=== PATIENT | male | born 1945 | race Caucasian/White ===

== ENCOUNTER 2018-11-06 18:04 | Observation (INO) | payer OTHER ==
[~2018-11-06] VITALS: Ht 160 cm; Wt 61.7 kg
[2018-11-06] MEDS ORDERED: SOD CHLORIDE 0.9% 500 ML IV STA (19:59)
--- NOTE | 2018-11-06 20:23 | ERD ---
ER Documentation Chief Complaint Chief Complaint CP X'S 2 WEEKS, BLOOD IN STOOL X'S 2 DAYS HPI 73-year-old male with a history of diabetes, SVT sent from his primary care doctor's office for constipation. Patient states that he has had constipation problems for the past 1 year but has recently worsened in the past 1 week. 2 days ago, he did see blood in his stools, which worried his primary care doctor who sent him to the ER. Patient has a colonoscopy scheduled in March and states that he cannot wait that long. He has a history of some type of rectal surgery due to a hole in his colon per his son. The details of the surgery are unclear. However he denies having any cancer. That was done 15 years ago when he has not had colonoscopy since then. Patient endorses some mild lower abdominal pain but denies any nausea, vomiting, fever, chills, or severe rectal pain. He denies any dysuria, change in urination, or hematuria. Of note, chief complaint for the patient states that he had chest pain. However I think there was some problem with communication given the patient is only Telugu speaking. He is denying any chest pain to me. ROS All systems reviewed and are negative except as per history of present illness. Medications Home Meds No Active Prescriptions or Reported Meds Allergies Allergies: Coded Allergies: No Known Allergy (Unverified , 11/07/18) PMhx/Soc History of Surgery: Yes (appendectomy, colon sx) Hx Cardiac Disorders: Yes (SVT) Hx Miscellaneous Medical Probl: Yes (Diabetes) Hx Alcohol Use: No Hx Substance Use: No Hx Tobacco Use: No Smoking Status: Never smoker FmHx Family History: No diabetes Physical Exam Vitals Physical Exam Const: No acute distress Head: Atraumatic Eyes: Normal Conjunctiva ENT: Normal External Ears, Nose and Mouth. Neck: Full range of motion. No meningismus. Resp: Clear to auscultation bilaterally Cardio: Regular rate and rhythm, no murmurs Abd: Soft, non tender, non distended. Normal bowel sounds Skin: No petechiae or rashes Back: No midline or flank tenderness Ext: No cyanosis, or edema Neur: Awake and alert Psych: Normal Mood and Affect Results 24 hrs Laboratory Tests Test 11/06/18 20:00 11/06/18 21:20 White Blood Count 9.5 10^3/ul Red Blood Count 4.68 10^6/ul Hemoglobin 13.5 g/dl Hematocrit 40.8 % Mean Corpuscular Volume 87.2 fl Mean Corpuscular Hemoglobin 28.8 pg Mean Corpuscular Hemoglobin Concent 33.1 g/dl Red Cell Distribution Width 11.9 % Platelet Count 301 10^3/UL Mean Platelet Volume 9.2 fl Immature Granulocytes % 0.200 % Neutrophils % 46.5 % Lymphocytes % 46.0 % Monocytes % 6.5 % Eosinophils % 0.5 % Basophils % 0.3 % Nucleated Red Blood Cells % 0.0 /100WBC Immature Granulocytes # 0.020 10^3/ul Neutrophils # 4.4 10^3/ul Lymphocytes # 4.4 10^3/ul Monocytes # 0.6 10^3/ul Eosinophils # 0.1 10^3/ul Basophils # 0.0 10^3/ul Nucleated Red Blood Cells # 0.0 10^3/ul Sodium Level 144 mmol/L Potassium Level 3.7 mmol/L Chloride Level 100 mmol/L Carbon Dioxide Level 30 mmol/L Anion Gap 14 Blood Urea Nitrogen 17 mg/dl Creatinine 1.02 mg/dl Est Glomerular Filtrat Rate mL/min mL/min Glucose Level 132 mg/dl Calcium Level 10.3 mg/dl Total Bilirubin 0.6 mg/dl Direct Bilirubin 0.00 mg/dl Indirect Bilirubin 0.6 mg/dl Aspartate Amino Transf (AST/SGOT) 21 IU/L Alanine Aminotransferase (ALT/SGPT) 16 IU/L Alkaline Phosphatase 49 IU/L Total Protein 8.3 g/dl Albumin 4.7 g/dl Globulin 3.60 g/dl Albumin/Globulin Ratio 1.30 Lipase 124 U/L Urine Color STRAW Urine Clarity CLEAR Urine pH 6.0 Urine Specific [place] 1.009 Urine Ketones TRACE mg/dL Urine Nitrite NEGATIVE mg/dL Urine Bilirubin NEGATIVE mg/dL Urine Urobilinogen NEGATIVE mg/dL Urine Leukocyte Esterase TRACE Lisa/ul Urine Microscopic RBC 1 /HPF Urine Microscopic WBC 1 /HPF Urine Hemoglobin NEGATIVE mg/dL Urine Glucose NEGATIVE mg/dL Urine Total Protein NEGATIVE mg/dl Current Medications Medications Dose Sig/Eliza Start Time Status Last (Trade) Ordered Route PRN Stop Time Admin Dose Reason Admin Sodium 500 ml @ Q1H STAT 11/06/18 DC 11/06/18 Chloride 500 mls/hr IV 19:59 11/06/18 20:26 20:58 Procedures/MDM EMERGENT LABS AND DIAGNOSTIC STUDIES: Lab Results above were reviewed and interpreted by me. CBC: no anemia or evidence of infection CMP: No evidence of clinically significant electrolyte abnormality, acidosis, renal failure, hypoglycemia, liver disease, or biliary obstruction Lipase: no evidence of pancreatitis UA: no evidence of infection 12-lead EKG was interpreted by Moni Chowdhury MD: Sinus rhythm with first-degree AV block at 94 bpm Normal axis Normal intervals No acute ST or T wave changes suggestive of acute ischemia or STEMI. Radiology Results as interpreted by Radiology below were reviewed by Doni Chowdhury MD: CT Abdomen and pelvis shows mild mural thickening of the rectosigmoid colon. Initial Nursing notes reviewed. Previous Medical Records requested via the Electronic Health Record. EMERGENCY DEPARTMENT COURSE / MEDICAL DECISION MAKING: Patient is presenting with problems with chronic constipation, now worsening with findings of rectal and sigmoid colon wall thickening on CT. I doubt infectious proctitis. But I am concerned about possible malignancy causing obstruction. As the patient does not have colonoscopy scheduled for several months, I feel it is in his best interest to be admitted for colonoscopy and further work-up as seen appropriate by specialist. I spoke with Dr. Diamond, who agreed to admit the patient. Departure Diagnosis: Primary Impression: Constipation Constipation type: unspecified constipation type Qualified Codes: K59.00 - Constipation, unspecified Additional Impression: Rectosigmoiditis Condition: JOSUÉ Loving MD November 06, 2018 20:23
[2018-11-07] MEDS ORDERED: ONDANSETRON 4 MG INJ IV PRN
[2018-11-07] MEDS ORDERED: NS + KCL 20 MEQ 1,000 ML IV SCH (00:52)
[2018-11-07] MEDS ORDERED: NA PHOSPHATE/BIPHOS 133 ML ENEMA PR PRN (01:00)
[2018-11-07] MEDS ORDERED: DOCUSATE SODIUM 100 MG CAP PO SCH (01:00)
[2018-11-07] MEDS ORDERED: ONDANSETRON 4 MG TAB PO PRN (01:00)
[2018-11-07] MEDS ORDERED: ACETAMINOPHEN 325 MG TAB PO PRN ×2 (01:00)
[2018-11-07] MEDS ORDERED: NACL 0.9% 3 ML SYG IV SCH (01:00)
[2018-11-07 01:59] VITALS: Ht 160 cm; Wt 61.7 kg
[2018-11-07 02:20] VITALS: BP 157/79; PULSE 96; RESP 17
[2018-11-07] MEDS ORDERED: IBUPROFEN 600 MG TAB PO PRN (04:00)
[2018-11-07] MEDS ORDERED: SUMATRIPTAN 50 MG TAB PO PRN (04:00)
[2018-11-07] MEDS ORDERED: traMADol 50 MG TAB PO PRN (04:00)
[2018-11-07 08:00] VITALS: BP 135/75; PULSE 85; RESP 18
[2018-11-07] MEDS ORDERED: FAMOTIDINE 20 MG TAB PO SCH (09:00)
[2018-11-07] MEDS ORDERED: GABAPENTIN 100 MG CAP PO SCH (09:00)
--- NOTE | 2018-11-07 09:56 | PDOCDIS ---
Discharge Instructions CONDITION [id number] Patient Condition: [id number] Good HOME CARE INSTRUCTIONS: [id number] Diet Instructions: [id number] Regular ACTIVITY: [id number] Activity Restrictions: [id number] No Restrictions FOLLOW UP/APPOINTMENTS Follow-up Plan pcp 1 week SHAHEED CHEATHAM MD November 07, 2018 09:56
--- NOTE | 2018-11-07 11:10 | HP ---
DATE OF ADMISSION: 11/06/2018 CHIEF COMPLAINT: Constipation and blood in stool 2 days prior to admission. HISTORY OF PRESENT ILLNESS: A 73-year-old male with history of type 2 diabetes mellitus, was referre d to emergency room with complaint of constipation. The patient reports that he had bright red blood per rectum 2 days prior to admission. He had seen constipated and having difficulty with bowel move ments. The patient denies melena. He denies abdominal pain, nausea, or vomiting. No hematemesis. Hemoglobin at the time of admission was 13.5. Repeat hemoglobin the following day was also 13.5. Ba sic metabolic panel was within normal limits. Hemoglobin A1c was elevated at 7.4. Abdominal pelvic CT showed mild mural thickening of the descending and rectosigmoid portion of the colon. The patient was also found to half a calcified gallstone in the gallbladder with no wall thickening as well as a n 11 mm nonobstructing calculus in the lower pole of the right kidney without any hydronephrosis. Th e prostate gland was enlarged. PAST MEDICAL HISTORY: 1. Type 2 diabetes mellitus. 2. Benign prostatic hyperplasia. SOCIAL HISTORY: The patient lives at home. He denies tobacco or alcohol use. PHYSICAL EXAMINATION: GENERAL: Well-developed, well-nourished male who is in no apparent distress. VITAL SIGNS: Stable. He is afebrile. HEENT: Extraocular muscles are intact. Pupils are equal and reactive to light bilaterally. Sclerae are anicteric. Oropharynx is clear and moist. NECK: Supple, no JVD, no carotid bruits. LUNGS: Clear to auscultation bilaterally. CARDIAC: Regular rate and rhythm. No murmurs or gallops. ABDOMEN: Soft, mildly tender, normoactive bowel sounds. EXTREMITIES: No clubbing, cyanosis, or edema. NEUROLOGICAL: Nonfocal. ASSESSMENT: A 73-year-old male with: 1. Episode of rectal bleed 2 days prior to admission. Hemoglobin has been stable. 2. Constipation. 3. Type 2 diabetes mellitus, diet controlled. 4. Benign prostatic hyperplasia. PLAN: 1. Place in med/surg observation. 2. Maxitrate x1. 3. Discharge planning after bowel movement is induced. 4. Follow up with PCP in 1 week. Dictated By: SHAHEED KRUGER/CAMPBELL Conf#: [id number] DID#: [id number] CC: KINGSTON JEFFRIES MD;*EndCC*
[2018-11-07] MEDS ORDERED: MAGNESIUM CITRATE 300 ML BTL PO ONE (11:30)
== END 2018-11-07 13:00 | disposition home or self-care (01) ==
LOC: E/R 18:04 → PP2 23:45
PROVIDERS: ADMIT Internal Medicine; ATTEND Internal Medicine
DX: K59.00 Constipation, unspecified (principal); E11.9 Type 2 diabetes mellitus without complications; N40.0 Benign prostatic hyperplasia without lower urinary tract symptoms
CPT/HCPCS: 36415; 74176; 80048; 80053; 81001; 82550; 82553; 82962; 83036; 83690; 83735; 84436; 84479; 84484; 85025; 93005; J3480; J7040; Z7500; Z7502; Z7610; G0378